=== PATIENT | female | born 1985 | race African-American/Black ===

== ENCOUNTER 2017-08-08 15:19 | Emergency (ER) | payer SELFPAY ==
[~2017-08-08] VITALS: Ht 167.6 cm; Wt 93.1 kg
[~2017-08-08 15:19] MED LIST: Ambien PO; Feosol PO; Motrin PO
[2017-08-08 15:29] VITALS: BP 120/74
== END 2017-08-08 17:30 | disposition left against medical advice (07) ==
LOC: EME 15:19
DX: O26.892 Other specified pregnancy related conditions, second trimester (principal); R10.9 Unspecified abdominal pain; Z3A.17 17 weeks gestation of pregnancy; Z53.21 Procedure and treatment not carried out due to patient leaving prior to being seen by health care provider
CPT/HCPCS: 80053; 85025; 99281; 99282

== ENCOUNTER 2017-08-26 15:04 | Emergency (ER) | payer OTHER ==
[~2017-08-26] VITALS: Ht 167.6 cm; Wt 94.5 kg
[2017-08-26] MEDS ORDERED: LIDODERM 5% P1 PATCH TD (16:16)
[2017-08-26] MEDS ORDERED: FLEXERIL10 MG PO (16:16)
[2017-08-26 16:51] VITALS: BP 00/00
== END 2017-08-26 16:52 | disposition home or self-care (01) ==
LOC: EME 15:04
DX: O26.892 Other specified pregnancy related conditions, second trimester (principal); R10.84 Generalized abdominal pain; K42.9 Umbilical hernia without obstruction or gangrene; Z3A.19 19 weeks gestation of pregnancy
CPT/HCPCS: 99281; 99283

== ENCOUNTER 2018-01-16 12:24 | Inpatient (IN) | payer OTHER ==
[2018-01-16] VITALS (11 sets, daily range): BP systolic 110–156; BP diastolic 68–92
[~2018-01-16] VITALS: Ht 167.6 cm; Wt 111.0 kg
[~2018-01-16 12:24] MED LIST changes: +FLEXERIL10 MG PO; +LIDODERM 5% P1 PATCH TD
[2018-01-16 14:32] LABS: COCAINE NEGATIVE (150 ng/mL); METHAMPHETAMINE NEGATIVE (500 ng/mL); OPIATES (MORPHINE) NEGATIVE (100 ng/mL); PHENCYCLIDINE NEGATIVE (25 ng/mL); THC CANNABINOIDS NEGATIVE (50 ng/mL)
[2018-01-16 14:33] LABS: AMPHETAMINE NEGATIVE (500 ng/mL); BARBITURATES NEGATIVE (200 ng/mL); BENZODIAZEPINES PRESUMPTIVE POSITIVE (150 ng/mL); BUPRENORPHINE NEGATIVE (10 ng/mL); METHADONE NEGATIVE (200 ng/mL); OXYCODONE NEGATIVE (100 ng/mL); PROPOXYPHENE NEGATIVE (300 ng/mL); TRICYCLIC ANTIDEPRESSANTS NEGATIVE (300 ng/mL)
[2018-01-16 14:39] LABS: BASOPHIL (%) 0.3 % (0-1); EOSINOPHIL (%) 0.5 % (0-5); HEMATOCRIT 36.4 % (36.0-46.0); HEMOGLOBIN 12.2 G/DL (11.9-15.5); IMMATURE GRANULOCYTE (%) 0.5 % (0.0-0.7); LYMPHOCYTE (%) 17.5 % (15-42); LYMPHOCYTE COUNT 1.1 K/uL (1.0-2.8); MCH 30.2 PG (29.0-34.0); MCHC 33.5 G/DL (30.0-36.0); MCV 90.1 FL (83-99); MONOCYTE (%) 9.6 % (3-12); MONOCYTE COUNT 0.6 K/uL (0-0.8); NEUTROPHIL (%) 71.6 % (45-76); NEUTROPHIL COUNT 4.5 K/uL (1.8-6.4); PLATELET COUNT 184 K/uL (156-360); RBC DIS.WIDTH-CV 13.7 % (11.8-14.6); RBC DIS.WIDTH-SD 45.3 % (39-53); RED BLOOD COUNT 4.04 M/uL (3.80-5.20); WHITE BLOOD COUNT 6.2 K/uL (4.1-10.2)
[2018-01-16] MEDS ORDERED: PRENATAL TABLE1 EAC3 PO (14:59)
[2018-01-16 15:17] LABS: BENZODIAZEPINES, URINE SCREEN Negative (200 ng/mL)
[2018-01-16] MEDS ORDERED: ZOLOFT25 MG PO (20:12)
[2018-01-16] MEDS ORDERED: IBUPROFEN800 MG PO (20:43)
[2018-01-17] MEDS ORDERED: BREAST PUMP MC (11:53)
[2018-01-17 22:55] VITALS: BP 124/77
[2018-01-18 16:00] VITALS: BP 124/86
== END 2018-01-18 17:07 | disposition home or self-care (01) | DRG 775 ==
LOC: LDRP-OP 12:24 → 2WEST 12:25 → LDRP-OP 02-17 08:44
PROVIDERS: Midwife
DX: O99.284 Endocrine, nutritional and metabolic diseases complicating childbirth (principal); E03.9 Hypothyroidism, unspecified; O99.214 Obesity complicating childbirth; E66.9 Obesity, unspecified; O99.824 Streptococcus B carrier state complicating childbirth; K42.9 Umbilical hernia without obstruction or gangrene; O99.62 Diseases of the digestive system complicating childbirth; Z68.31 Body mass index [BMI] 31.0-31.9, adult; Z3A.39 39 weeks gestation of pregnancy; Z37.0 Single live birth
CPT/HCPCS: 84999; 85025; J0595; J1050; J2540; J7120